=== PATIENT | female | born 1925 | race Caucasian/White ===

== ENCOUNTER 2017-03-12 10:47 | Inpatient (IN) | payer MEDICARE, OTHER ==
[2017-03-12] MEDS ORDERED: Furosemide IV* 10 MG/ML 2 ML VIAL (20 MG) IV SLOW PU ONE (13:22)
[2017-03-12 13:57] LABS: Hematocrit 41 % (35-47); Hemoglobin 13.3 g/dl (12.0-16.0); Mean Corpuscular HGB Conc 33 g/dl (31-36); Mean Corpuscular Hemoglobin 29 pg (27-31); Mean Corpuscular Volume 90 fL (80-97); Mean Platelet Volume 9 um3 (7.4-10.4); Red Blood Count 4.54 10^6/ul (4.0-5.4); Red Cell Distribution Width 14 % (10.5-15); White Blood Count 6.6 10^3/ul (3.5-10.8)
--- NOTE | 2017-03-12 14:12 | RAD ---
Indication: Shortness of breath. Single frontal view of the chest performed at 1358 hours was reviewed. Comparison is made with previous exam dated August 19, 2015. Cardiomegaly is noted. Patient is status post tracer thoracotomy. Bilateral pleural effusions are noted with increasing left pleural effusion. Interstitial edema is noted. IMPRESSION: CARDIOMEGALY WITH INCREASED INTERSTITIAL EDEMA AND LEFT PLEURAL EFFUSION.
[2017-03-12 14:20] LABS: Albumin 3.4 g/dL (3.2-5.2); BUN/Creatinine Ratio 25.8 (8-20); C Reactive Protein 50.81 mg/L (< 5.00); Calcium 9.3 mg/dL (8.6-10.3); EGFR African American 69.5 (>60); EGFR Non-African American 54.1 (>60); Globulin 2.9 g/dL (2-4); Magnesium 2.2 mg/dL (1.9-2.7); Potassium 4.8 mmol/L (3.5-5.0); Total Bilirubin 1.8 mg/dL (0.2-1.0); Total Protein 6.3 g/dL (6.4-8.9)
[2017-03-12 14:21] LABS: Urine Bacteria Absent (Absent); Urine Bilirubin Negative (Negative); Urine Glucose Negative (Negative); Urine Nitrite Negative (Negative)
[2017-03-12 14:26] LABS: Troponin I 7.29 ng/mL (<0.04)
[2017-03-12 14:53] LABS: TSH (Thyroid Stimulating Horm) 3.03 mcIU/mL (0.34-5.60)
--- NOTE | 2017-03-12 15:32 | ED ---
Anu Chavez Alfonso, scribed for Chevy Horne MD on 03/12/17 at 1301 . HPI Chest Pain - HPI Summary HPI Summary: This patient is a 89 year old female presenting to [facility] c/o diffuse pressured chest pain for 2 days. The CP is intermittent and her last episode of CP was an hour ago. Symptoms aggravated by nothing and alleviated by spontaneous resolution. Patient reports gaining weight while on diuretic medication, bilateral pedal edema worse from baseline, and dyspnea on exertion. Patient denies dyspnea at rest, coughing, fever, and chills. She also denies abdominal pain, nausea, diarrhea, and melena. PMHx of CHF and A-Fib. - History of Current Complaint Chief Complaint: EDChestPainROMI Time Seen by Provider: 03/12/17 13:00 Hx Obtained From: Patient Onset/Duration: Started Days Ago - Two days, Resolved - An hour ago Timing: Intermittent Initial Severity: Mild Current Severity: Mild Pain Intensity: 0 Pain Scale Used: 0-10 Numeric Chest Pain Location: Diffuse Character: Dyspnea at Exertion, Pressure/Squeezing Aggravating Factor(s): Nothing Alleviating Factor(s): Spontaneous Resolution Associated Signs and Symptoms: Positive: Chest Pain - Diffuse pressure, Shortness of Breath - Positive on exertion; negative at rest., Calf Pain/ Swelling - Bilateral pedal edema, Other: - Positive gaining weight while on a diuretic; negative diarrhea and melena. Negative: Fever, Chills, Nausea, Cough , Abdominal Pain - Allergy/Home Medications Allergies/Adverse Reactions: Allergies Allergy/AdvReac Type Severity Reaction Status Date / Time Latex Allergy Severe SKIN Verified 07/04/16 11:12 REACTION, ITCHING YOMAIRA Inhibitors Allergy Unknown Unknown Verified 07/04/16 11:12 Reaction Details Erythromycin Allergy Unknown GI Upset Verified 07/04/16 11:12 Iodinated Contrast Media Allergy Unknown Rash Verified 07/04/16 11:12 [CONTRAST DYE] PMH/Surg Hx/FS Hx/Imm Hx Cardiovascular History: Reports: Hx Angina, Hx Congestive Heart Failure - Was given this in report but there is no current H & P, Hx Hypertension, Other Cardiovascular Problems/Disorders - LEAKING VALVE,nonischemic cardiomyopathy, mitral valve disorder Respiratory History: Reports: Other Respiratory Problems/Disorders - emphasema Denies: Hx Asthma GI History: Reports: Hx Gastroesophageal Reflux Disease Sensory History: Reports: Hx Contacts or Glasses, Hx Hearing Aid Opthamlomology History: Reports: Hx Contacts or Glasses Neurological History: Reports: Hx Transient Ischemic Attacks (TIA) - Cancer History Cancer Type, Location and Year: Breast CA - Surgical History Surgery Procedure, Year, and Place: Left and right Ear surgery , cyst removed from left breast, colon resection for diverticulitis, VALVE REPLACEMENT , SMOKER AT 20 YEARS OLD FOR SHORT PERIOD Hx Anesthesia Reactions: No Infectious Disease History: Denies: Traveled Outside the [place] in Last 30 Days - Family History Known Family History: Positive: Other - Cancer Negative: Diabetes - Social History Alcohol Use: None Substance Use Type: Reports: None Smoking Status (MU): Former Smoker Review of Systems Positive: Other - Gaining weight while on diuretic medication. Negative: Fever , Chills Positive: Chest Pain - Diffuse pressured Positive: Shortness Of Breath - Positive on exertion; negative at rest.. Negative: Cough Positive: Other - Negative melena. Negative: Abdominal Pain, Diarrhea, Nausea Positive: Edema - bilateral pedal edema worse from baseline All Other Systems Reviewed And Are Negative: Yes Physical Exam - Summary Physical Exam Summary: Gen: well-appearing, no pain distress, no acute distress Skin: warm, color, dry, bilateral pedal edema Head: normal Eyes: EOMI, KASSI ENT: normal Neck: supple, nontender Resp: Crackles at the bases of the lungs Cardio: RRR Abd: soft, nontender Bowel: present Musc: normal, strength/ROM intact Neuro: normal, sensory/motor intact, A&O x3 Psych: affect/mood appropriate Triage Information Reviewed: Yes Vital Signs On Initial Exam: Initial Vitals Temp Pulse Resp BP Pulse Ox 97.7 F 55 22 92/72 100 03/12/17 10:48 03/12/17 10:48 03/12/17 10:48 03/12/17 10:48 03/12/17 10:48 Vital Signs Reviewed: Yes Diagnostics - Vital Signs Vital Signs Temp Pulse Resp BP Pulse Ox 03/12/17 10:48 97.7 F 55 22 92/72 100 - Laboratory Lab Results: Lab Results 03/12/17 03/12/17 03/12/17 Range/Units 13:50 13:50 13:50 WBC 6.6 (3.5-10.8) 10^3/ul RBC 4.54 (4.0-5.4) 10^6/ul Hgb 13.3 (12.0-16.0) g/dl Hct 41 (35-47) % MCV 90 (80-97) fL MCH 29 (27-31) pg MCHC 33 (31-36) g/dl RDW 14 (10.5-15) % Plt Count 142 L (150-450) 10^3/ul MPV 9 (7.4-10.4) um3 Neut % (Auto) 62.8 (38-83) % Lymph % (Auto) 25.4 (25-47) % [place] % (Auto) 10.5 H (1-9) % Eos % (Auto) 0.4 (0-6) % Baso % (Auto) 0.9 (0-2) % Absolute Neuts (auto) 4.1 (1.5-7.7) 10^3/ul Absolute Lymphs (auto) 1.7 (1.0-4.8) 10^3/ul Absolute Monos (auto) 0.7 (0-0.8) 10^3/ul Absolute Eos (auto) 0 (0-0.6) 10^3/ul Absolute Basos (auto) 0.1 (0-0.2) 10^3/ul Absolute Nucleated RBC 0 10^3/ul Nucleated RBC % 0 INR (Anticoag Therapy) 2.49 H (0.89-1.11) APTT 43.6 H (26.0-36.3) seconds Sodium (133-145) mmol/L Potassium (3.5-5.0) mmol/L Chloride (101-111) mmol/L Carbon Dioxide (22-32) mmol/L Anion Gap (2-11) mmol/L BUN (6-24) mg/dL Creatinine (0.51-0.95) mg/dL Est GFR ( Amer) (>60) Est GFR (Non-Af Amer) (>60) BUN/Creatinine Ratio (8-20) Glucose (70-100) mg/dL Lactic Acid (0.5-2.0) mmol/L Calcium (8.6-10.3) mg/dL Magnesium (1.9-2.7) mg/dL Total Bilirubin (0.2-1.0) mg/dL AST (13-39) U/L ALT (7-52) U/L Alkaline Phosphatase (34-104) U/L Total Creatine Kinase (10-223) U/L CK-MB (CK-2) (0.6-6.3) ng/mL Troponin I (<0.04) ng/mL C-Reactive Protein (< 5.00) mg/L B-Natriuretic Peptide ( - 100) pg/mL Total Protein (6.4-8.9) g/dL Albumin (3.2-5.2) g/dL Globulin (2-4) g/dL Albumin/Globulin Ratio (1-3) Lipase (11.0-82.0) U/L TSH (0.34-5.60) mcIU/mL Urine Color Yellow Urine Appearance Clear Urine pH 5.0 (5-9) Ur Specific [place] 1.011 (1.010-1.030) Urine Protein Negative (Negative) Urine Ketones Negative (Negative) Urine Blood Negative (Negative) Urine Nitrate Negative (Negative) Urine Bilirubin Negative (Negative) Urine Urobilinogen Negative (Negative) Ur Leukocyte Esterase 1+ H (Negative) Urine WBC (Auto) 2+(11-20/hpf) H (Absent) Urine RBC (Auto) Trace(0-2/hpf) (Absent) Ur Squamous Epith Cells Present H (Absent) Urine Bacteria Absent (Absent) Hyaline Casts Present H (Absent) Urine Glucose Negative (Negative) Urine Ascorbic Acid * H (Negative) 03/12/17 03/12/17 03/12/17 Range/Units 13:50 13:50 13:50 WBC (3.5-10.8) 10^3/ul RBC (4.0-5.4) 10^6/ul Hgb (12.0-16.0) g/dl Hct (35-47) % MCV (80-97) fL MCH (27-31) pg MCHC (31-36) g/dl RDW (10.5-15) % Plt Count (150-450) 10^3/ul MPV (7.4-10.4) um3 Neut % (Auto) (38-83) % Lymph % (Auto) (25-47) % [place] % (Auto) (1-9) % Eos % (Auto) (0-6) % Baso % (Auto) (0-2) % Absolute Neuts (auto) (1.5-7.7) 10^3/ul Absolute Lymphs (auto) (1.0-4.8) 10^3/ul Absolute Monos (auto) (0-0.8) 10^3/ul Absolute Eos (auto) (0-0.6) 10^3/ul Absolute Basos (auto) (0-0.2) 10^3/ul Absolute Nucleated RBC 10^3/ul Nucleated RBC % INR (Anticoag Therapy) (0.89-1.11) APTT (26.0-36.3) seconds Sodium 130 L (133-145) mmol/L Potassium 4.8 (3.5-5.0) mmol/L Chloride 91 L (101-111) mmol/L Carbon Dioxide 33 H (22-32) mmol/L Anion Gap 6 (2-11) mmol/L BUN 25 H (6-24) mg/dL Creatinine 0.97 H (0.51-0.95) mg/dL Est GFR ( Amer) 69.5 (>60) Est GFR (Non-Af Amer) 54.1 (>60) BUN/Creatinine Ratio 25.8 H (8-20) Glucose 101 H (70-100) mg/dL Lactic Acid 1.6 (0.5-2.0) mmol/L Calcium 9.3 (8.6-10.3) mg/dL Magnesium 2.2 (1.9-2.7) mg/dL Total Bilirubin 1.80 H (0.2-1.0) mg/dL AST 50 H (13-39) U/L ALT 34 (7-52) U/L Alkaline Phosphatase 118 H (34-104) U/L Total Creatine Kinase 70 (10-223) U/L CK-MB (CK-2) 3.6 (0.6-6.3) ng/mL Troponin I 7.29 H* (<0.04) ng/mL C-Reactive Protein 50.81 H (< 5.00) mg/L B-Natriuretic Peptide 4161 H ( - 100) pg/mL Total Protein 6.3 L (6.4-8.9) g/dL Albumin 3.4 (3.2-5.2) g/dL Globulin 2.9 (2-4) g/dL Albumin/Globulin Ratio 1.2 (1-3) Lipase 22 (11.0-82.0) U/L TSH 3.03 (0.34-5.60) mcIU/mL Urine Color Urine Appearance Urine pH (5-9) Ur Specific [place] (1.010-1.030) Urine Protein (Negative) Urine Ketones (Negative) Urine Blood (Negative) Urine Nitrate (Negative) Urine Bilirubin (Negative) Urine Urobilinogen (Negative) Ur Leukocyte Esterase (Negative) Urine WBC (Auto) (Absent) Urine RBC (Auto) (Absent) Ur Squamous Epith Cells (Absent) Urine Bacteria (Absent) Hyaline Casts (Absent) Urine Glucose (Negative) Urine Ascorbic Acid (Negative) Result Diagrams: 03/12/17 13:50 03/12/17 13:50 Lab Statement: Any lab studies that have been ordered have been reviewed, and results considered in the medical decision making process. - Radiology CXR Xray Interpretation: Positive (See Comments) - CARDIOMEGALY WITH INCREASED INTERSTITIAL EDEMA AND LEFT PLEURAL EFFUSION. Radiology Interpretation Completed By: Radiologist - EKG 1057 EKG Rhythm: Atrial Fibrillation - BPM 87 EKG Interpretation: LBBB and PVC Re-Evaluation - Re-Evaluation 1325 Re-Evaluation Time: 13:25 Comment: Discussed plan to administer Lasix with patient and daughter. They were agreeable to this plan. Second Eval Re-Evaluation Time: 14:41 - Discussed plan with patient and daughter. They were agreeable to this plan. Chest Pain Course/Dx - Course Course Of Treatment: CRITICAL CARE TIME LESS THAN [address] POWELL SAW PATIENT IN ED. RECOMMENDED NO ASA AT THIS TIME. PATIENT ADMIT TO HOSPITALIST STABLE. - Diagnoses Provider Diagnoses: CHF (congestive heart failure), Myocardial infarction - Provider Notifications Discussed Care Of Patient With: Malia Powell Time Discussed With Above Provider: 13:20 Instructed by Provider To: MD Will See In ED - Consulted with Malia Powell ( manufacturing machine operator) who recommends 20-40mg of IV Lasix. She will see the patient in the ED. After evaluating patient in the ED, Dr. Powell states patient is agreeable with admission. Dr. Silva (hospitalist) consulted at 1456 and he accepts patient for admission. Discharge - Discharge Plan Condition: Stable Disposition: ADMITTED TO [facility] Referrals: Bonifacio Castañeda MD [Primary Care Provider] - The documentation as recorded by the Anu mackay Alfonso accurately reflects the service I personally performed and the decisions made by me, Chevy Horne MD.
[2017-03-12] MEDS ORDERED: Ondansetron INJ* 2 MG/ML VIAL IV PRN (15:59)
[2017-03-12] MEDS ORDERED: Acetaminophen TAB* 325 MG PO PRN (15:59)
[2017-03-12] MEDS ORDERED: Warfarin TAB(*) 2 MG PO ONE (17:00)
--- NOTE | 2017-03-12 18:29 | HP ---
CC: Bonifacio Castañeda MD; Malia Rick MD * ADMISSION HISTORY AND PHYSICAL: DATE OF ADMISSION: 03/12/17 PRIMARY CARE PROVIDER: Bonifacio Castañeda MD. PRIMARY BLASTING ENTRY SPECIALIST: Malia Rick MD. ADMITTING PROVIDER: LILIAN Clay. SUPERVISING PHYSICIAN: Librado Silva MD.* (DICTATED BY LILIAN CLAY) CHIEF COMPLAINT: Shortness of breath. HISTORY OF PRESENT ILLNESS: This is an 89-year-old female with a history of severe cardiomyopathy who presented to the emergency department with complaints of increased dyspnea on exertion. The patient lives with her daughter who is diligent at checking daily weights and noted about a 3-pound increase over the last several days. It was not improving with additional diuretics at home. She typically takes 30 mg of torsemide daily with 40 mg dose given 3 times weekly along with spironolactone. She has taken the 40 mg dose for 2 days in a row and did not notice a significant change in weight; if anything, it increased by another half a pound or so. She became more acutely dyspneic last night, but did not want to proceed to the emergency department at that time. She generally climbs a circular staircase to get up to her bedroom, but has not done so in the last week or so. In addition to the weight gain and dyspnea, she has also noted some increased lower extremities edema and abdominal bloating. Also new in the last few days is she has been experiencing some chest pain and pressure with exertion as limited as just getting to the bathroom and back. Her urine output has also been less recently. She denies any other urinary complaints including abdominal pain, nausea, vomiting, dysuria , hematuria or frequency. The patient's daughter called Dr. Rick's office for advice regarding her weight gain not responding to her home diuretics and advice was given to seek care in the emergency department. The patient denies any other acute recent illness including a cough or fevers. No GI complaints as listed above and again no urinary complaints. She does state that she has had some recent allergies which is typical for her this time of the year, but again, nothing out of the ordinary. PAST MEDICAL HISTORY: 1. Paroxysmal atrial fibrillation. 2. Systolic and diastolic heart failure - severe with last echo showing an EF of less than 20% and grade 3 diastolic dysfunction. 3. Severe mitral regurgitation, status post mitral valve replacement with bioprosthetic valve in place. PAST SURGICAL HISTORY: Mitral valve replacement. HOME MEDICATIONS: 1. Vitamin C 1000 mg p.o. daily. 2. Vitamin D 2000 units p.o. daily. 3. Magnesium oxide 400 mg p.o. twice daily. 4. Metoprolol succinate 25 mg p.o. daily. 5. Multivitamin 1 capsule p.o. daily. 6. Zantac 150 mg p.o. twice daily. 7. Spironolactone 12.5 mg on Friday, , Friday, Friday. 8. She takes torsemide 30 mg on Friday, Friday, Friday, Friday and 40 mg on Friday, , Friday. 9. Coumadin 2 mg p.o. daily. SOCIAL HISTORY: The patient lives at home with her daughter. She is a retired [employer] professor. No significant smoking history and rare alcohol consumption. REVIEW OF SYSTEMS: As listed above in HPI. All other systems have been reviewed and otherwise negative. PHYSICAL EXAMINATION GENERAL: This is a pleasant elderly female who is accompanied by her daughter and does not appear to be in any acute distress, lying comfortably in a hospital stretcher. INITIAL VITAL SIGNS: Temperature 97.7 degrees Fahrenheit, pulse 55 beats per minute, respiratory rate 22, oxygen saturation 100% on 8 L via nasal cannula and a blood pressure of 92/72 mmHg. HEENT: Head is normocephalic, atraumatic. Mucous membranes are pink and moist. RESPIRATORY: There are a few crackles appreciated at lung bases and some diminished breath sounds in the left lung base. CARDIOVASCULAR: She has a slightly irregular rhythm. No significant murmur appreciated. ABDOMEN: Abdomen is slightly distended but soft and nontender to palpation. EXTREMITIES: The patient has trace to 1+ left lower extremity edema and 1 to 2 + right lower extremity edema. SKIN: Limited exam shows no concerning rashes or lesions. PSYCH: The patient is alert and appropriately oriented. Some mild confusion with details of her history, but is otherwise a quite appropriate historian. LABORATORY EVALUATION: CBC is unremarkable with a white blood cell count of 6600, hemoglobin of 13.3 g/dL and platelet count of 142,000. INR of 2.5. Comprehensive metabolic panel shows sodium of 130, serum bicarb of 33, BUN 25, creatinine 0.97. Magnesium normal at 2.2. Total bili mildly elevated at 1.8 with AST mildly elevated at 50. Normal ALT 34. Alk phos mildly elevated at 118. Troponin significantly elevated at 7.29. CRP moderately elevated at 50. BNP significantly elevated at 4161. TSH normal at 3.03. Urinalysis shows 1+ leuk esterase and 2+ white blood cells. Otherwise, unremarkable. IMAGING: Chest x-ray shows interstitial edema with bilateral pleural effusions , left is moderate in size and right is small. EKG shows atrial fibrillation with a left bundle branch block which is unchanged from prior. Review of echocardiogram from April 2016 shows an ejection fraction of less than 20% with grade 3 diastolic dysfunction and a functional bioprosthetic mitral valve in place with mild regurg. ASSESSMENT AND PLAN: This is a very pleasant 89-year-old female with severe cardiomyopathy who presented to the emergency department with complaints of dyspnea with noted exacerbation of her congestive heart failure and significantly elevated troponin. 1. Congestive heart failure exacerbation - the patient has a moderately sized left pleural effusion with lower extremities edema and what likely is abdominal ascites. She is up at least 3 pounds from her dry weight which may or may not be a euvolemic state. In terms of intervention, the patient requests very little intervention. She is not interested in really anything beyond diuresis. She is agreeable to [place] catheter and IV Lasix and an abbreviated hospital stay but otherwise is not agreeable to considering BiPAP or ionotropic agents and certainly wishes to be DNR and DNI status. These plans were discussed with her daughter as well as Dr. Rick, all of which are in agreement. The patient has had severe cardiomyopathy for nearly a decade now and has been appropriately managed as an outpatient, but certainly her disease is progressing along with her age. I discussed palliative care consultation and home hospice which the patient and her daughter are in agreement and learning more about, but she is somewhat weary to consider nurses coming to visit in the home. 2. Elevated troponin - patient is certainly not acutely symptomatic for this to represent acute coronary syndrome and new ischemia is difficult to interpret with a chronic left bundle branch block. A troponin of 7 is quite high to blame this all on demand ischemia. Regardless of etiology, the patient does not desire dramatic intervention including cardiac catheterization. We will plan to trend her troponin at this time and continue her Coumadin. Heparin drip is not indicated as she is already therapeutic on Coumadin. This was discussed with Dr. Rick who agrees that no further intervention will be pursued at this time. 3. Atrial fibrillation - as previously listed paroxysmal, but may be chronic for her. She is appropriately rate controlled and anticoagulated with Coumadin. Both her metoprolol and Coumadin will be continued at this time. 4. Hyponatremia - this is likely related to her hypervolemic state and anticipate some improvement with diuresis. 5. Elevated CRP - this is moderately elevated. The patient is asymptomatic at this time. There is positive leuk esterase and white blood cells in her urine and culture pending. We will wait for at least preliminary culture results before starting empiric antibiotic therapy. The patient and her daughter are agreeable to antibiotics if seemingly necessary. 6. Code status. The patient is DNR/DNI and MOLST form was signed in the emergency department. 7. Healthcare proxy is her daughter. 8. DVT prophylaxis. The patient is therapeutic on Coumadin. 9. Disposition. The patient is being admitted under inpatient status for congestive heart failure exacerbation with anticipated length of stay to be greater than 2 midnights. LILIAN CLAY [id number]/[facility] #: [id number] STEPHANIE
[2017-03-12] MEDS ORDERED: Furosemide IV* 10 MG/ML 2 ML VIAL (20 MG) IV ONE (19:00)
[2017-03-12] MEDS: Famotidine TAB* 20 MG PO SCH (21:08)
[2017-03-12] MEDS: Magnesium Oxide TAB* 400 MG PO SCH (21:08)
[2017-03-12] MEDS: Morphine INJ* 2 MG/ML 1 ML SYRINGE IV PRN (21:44)
[2017-03-13 05:11] LABS: Hematocrit 38 % (35-47); Hemoglobin 12.3 g/dl (12.0-16.0); Mean Corpuscular HGB Conc 33 g/dl (31-36); Mean Corpuscular Hemoglobin 29 pg (27-31); Mean Corpuscular Volume 90 fL (80-97); Mean Platelet Volume 9 um3 (7.4-10.4); Red Blood Count 4.22 10^6/ul (4.0-5.4); Red Cell Distribution Width 14 % (10.5-15); White Blood Count 5.9 10^3/ul (3.5-10.8)
[2017-03-13 05:24] LABS: BUN/Creatinine Ratio 29.3 (8-20); EGFR African American 67.9 (>60); EGFR Non-African American 52.8 (>60); Potassium 4.4 mmol/L (3.5-5.0)
[2017-03-13 08:01] LABS: Albumin 3.1 g/dL (3.2-5.2); Direct Bilirubin 0.3 mg/dL (0.03-0.18); Globulin 2.6 g/dL (2-4); Indirect Bilirubin 1.1 mg/dL (0.3-1.0); Total Bilirubin 1.4 mg/dL (0.2-1.0); Total Protein 5.7 g/dL (6.4-8.9)
[2017-03-13] MEDS ORDERED: Furosemide IV* 10 MG/ML VIAL (40 MG) IV SCH (09:00)
[2017-03-13] MEDS: Metoprolol Succinate XL TAB* 25 MG PO SCH (09:06)
[2017-03-13] MEDS: MULTIVITAMIN PO SCH (09:06)
[2017-03-13] MEDS: ASCORBIC ACID 1000 MG PO SCH (09:06)
[2017-03-13] MEDS: [UNRECOGNIZED DRUG - OTHER] PO SCH (09:06)
[2017-03-13] MEDS: Magnesium Oxide TAB* 400 MG PO SCH ×2 (09:06→20:31)
[2017-03-13] MEDS: Famotidine TAB* 20 MG PO SCH ×2 (09:06→20:31)
[2017-03-13] MEDS: Spironolactone TAB* 25 MG PO SCH (09:06)
[2017-03-13] MEDS: IRON PO SCH (09:06)
[2017-03-13 09:21] LABS: Troponin I 4.82 ng/mL (<0.04)
--- NOTE | 2017-03-13 09:38 | PN ---
Subjective Date of Service: 03/13/17 Interval History: Pt feels much better and wants to go home. Down to 3 L on 02(used to be on 6-8 L till yesterday) Today seen with her daughter Objective Active Medications: Acetaminophen (Tylenol Tab*) 650 mg PO Q4H PRN PRN Reason: FEVER/PAIN Last Admin: 03/12/17 20:12 Dose: 650 mg Famotidine (Pepcid Tab*) 20 mg PO BID [facility] PRN Reason: Protocol Last Admin: 03/13/17 09:06 Dose: 20 mg Magnesium Oxide (Magox 400 Tab*) 400 mg PO BID [facility] Last Admin: 03/13/17 09:06 Dose: 400 mg Metoprolol Succinate (Toprol Xl Tab*) 25 mg PO DAILY [facility] Last Admin: 03/13/17 09:06 Dose: 25 mg Morphine Sulfate (Morphine Inj (Syringe)*) 2 mg IV Q4H PRN PRN Reason: PAIN - MILD Last Admin: 03/12/17 21:44 Dose: 2 mg Pto Nf Med* Ascorbic (Acid 1000 Mg Cap) 1 admin PO DAILY [facility] Last Admin: 03/13/17 09:06 Dose: 1 admin Pto Nf Med* Multivitamin With Mineral And Iron Cap 1 admin PO DAILY [facility] Last Admin: 03/13/17 09:06 Dose: 1 admin Ondansetron HCl (Zofran Inj*) 4 mg IV Q4H PRN PRN Reason: NAUSEA/VOMITING Pharmacy Profile Note (Coumadin Per Pharmacy*) 1 note FOLLOW UP .PER PHARMACY PROTOC [facility] PRN Reason: Protocol Pharmacy Profile Note (Coumadin Daily Reminder*) 1 note FOLLOW UP 1700 [facility] Spironolactone (Aldactone Tab*) 12.5 mg PO DAILY [facility] Last Admin: 03/13/17 09:06 Dose: 12.5 mg Vital Signs 03/12/17 03/12/17 03/12/17 15:30 15:39 15:49 Temperature 97.8 F Pulse Rate 88 75 101 Respiratory 18 15 18 Rate Blood Pressure 87/52 85/31 (mmHg) O2 Sat by Pulse 98 98 89 Oximetry 03/12/17 03/12/17 03/12/17 16:00 18:08 20:00 Temperature Pulse Rate 98 Respiratory 22 20 Rate Blood Pressure 88/62 (mmHg) O2 Sat by Pulse 96 Oximetry 03/12/17 03/12/17 03/13/17 21:44 22:44 00:10 Temperature 98.3 F Pulse Rate 48 Respiratory 20 16 16 Rate Blood Pressure 89/56 (mmHg) O2 Sat by Pulse 100 Oximetry 03/13/17 03/13/17 03/13/17 03:49 03:54 07:36 Temperature 97.8 F 97.3 F Pulse Rate 84 80 83 Respiratory 18 18 Rate Blood Pressure 82/50 89/47 81/48 (mmHg) O2 Sat by Pulse 100 100 Oximetry 03/13/17 03/13/17 08:00 08:17 Temperature Pulse Rate Respiratory 16 Rate Blood Pressure 84/48 (mmHg) O2 Sat by Pulse Oximetry Oxygen Devices in Use Now: Nasal Cannula - at 3 L, 02 sat at 96% Appearance: 89 yo F in nAd, aAOx3 Eyes: No Scleral Icterus, PERRLA Ears/Nose/Mouth/Throat: NL Teeth, Lips, Gums, Mucous Membranes Moist Neck: NL Appearance and Movements; NL JVP, Trachea Midline Respiratory: Symmetrical Chest Expansion and Respiratory Effort, - - crackles at b/l bases Cardiovascular: NL Sounds; No Murmurs; No JVD, - - irregular Abdominal: NL Sounds; No Tenderness; No Distention, No Hepatosplenomegaly Lymphatic: No Cervical Adenopathy Extremities: No Clubbing, Cyanosis, - - trace pedal edema b/l Skin: No Rash or Ulcers, No Nodules or Sclerosis Neurological: Alert and Oriented x 3, NL Muscle Strength and Tone Result Diagrams: 03/13/17 04:50 03/13/17 04:50 Additional Lab and Data: Lab Results 03/12/17 03/12/17 03/12/17 Range/Units 13:50 13:50 13:50 WBC 6.6 (3.5-10.8) 10^3/ul RBC 4.54 (4.0-5.4) 10^6/ul Hgb 13.3 (12.0-16.0) g/dl Hct 41 (35-47) % MCV 90 (80-97) fL MCH 29 (27-31) pg MCHC 33 (31-36) g/dl RDW 14 (10.5-15) % Plt Count 142 L (150-450) 10^3/ul MPV 9 (7.4-10.4) um3 Neut % (Auto) 62.8 (38-83) % Lymph % (Auto) 25.4 (25-47) % [place] % (Auto) 10.5 H (1-9) % Eos % (Auto) 0.4 (0-6) % Baso % (Auto) 0.9 (0-2) % Absolute Neuts (auto) 4.1 (1.5-7.7) 10^3/ul Absolute Lymphs (auto) 1.7 (1.0-4.8) 10^3/ul Absolute Monos (auto) 0.7 (0-0.8) 10^3/ul Absolute Eos (auto) 0 (0-0.6) 10^3/ul Absolute Basos (auto) 0.1 (0-0.2) 10^3/ul Absolute Nucleated RBC 0 10^3/ul Nucleated RBC % 0 INR (Anticoag Therapy) 2.49 H (0.89-1.11) APTT 43.6 H (26.0-36.3) seconds Sodium (133-145) mmol/L Potassium (3.5-5.0) mmol/L Chloride (101-111) mmol/L Carbon Dioxide (22-32) mmol/L Anion Gap (2-11) mmol/L BUN (6-24) mg/dL Creatinine (0.51-0.95) mg/dL Est GFR ( Amer) (>60) Est GFR (Non-Af Amer) (>60) BUN/Creatinine Ratio (8-20) Glucose (70-100) mg/dL Lactic Acid (0.5-2.0) mmol/L Calcium (8.6-10.3) mg/dL Magnesium (1.9-2.7) mg/dL Total Bilirubin (0.2-1.0) mg/dL AST (13-39) U/L ALT (7-52) U/L Alkaline Phosphatase (34-104) U/L Total Creatine Kinase (10-223) U/L CK-MB (CK-2) (0.6-6.3) ng/mL Troponin I (<0.04) ng/mL C-Reactive Protein (< 5.00) mg/L B-Natriuretic Peptide ( - 100) pg/mL Total Protein (6.4-8.9) g/dL Albumin (3.2-5.2) g/dL Globulin (2-4) g/dL Albumin/Globulin Ratio (1-3) Lipase (11.0-82.0) U/L TSH (0.34-5.60) mcIU/mL Urine Color Yellow Urine Appearance Clear Urine pH 5.0 (5-9) Ur Specific [place] 1.011 (1.010-1.030) Urine Protein Negative (Negative) Urine Ketones Negative (Negative) Urine Blood Negative (Negative) Urine Nitrate Negative (Negative) Urine Bilirubin Negative (Negative) Urine Urobilinogen Negative (Negative) Ur Leukocyte Esterase 1+ H (Negative) Urine WBC (Auto) 2+(11-20/hpf) H (Absent) Urine RBC (Auto) Trace(0-2/hpf) (Absent) Ur Squamous Epith Cells Present H (Absent) Urine Bacteria Absent (Absent) Hyaline Casts Present H (Absent) Urine Glucose Negative (Negative) Urine Ascorbic Acid * H (Negative) 03/12/17 03/12/17 03/12/17 Range/Units 13:50 13:50 13:50 WBC (3.5-10.8) 10^3/ul RBC (4.0-5.4) 10^6/ul Hgb (12.0-16.0) g/dl Hct (35-47) % MCV (80-97) fL MCH (27-31) pg MCHC (31-36) g/dl RDW (10.5-15) % Plt Count (150-450) 10^3/ul MPV (7.4-10.4) um3 Neut % (Auto) (38-83) % Lymph % (Auto) (25-47) % [place] % (Auto) (1-9) % Eos % (Auto) (0-6) % Baso % (Auto) (0-2) % Absolute Neuts (auto) (1.5-7.7) 10^3/ul Absolute Lymphs (auto) (1.0-4.8) 10^3/ul Absolute Monos (auto) (0-0.8) 10^3/ul Absolute Eos (auto) (0-0.6) 10^3/ul Absolute Basos (auto) (0-0.2) 10^3/ul Absolute Nucleated RBC 10^3/ul Nucleated RBC % INR (Anticoag Therapy) (0.89-1.11) APTT (26.0-36.3) seconds Sodium 130 L (133-145) mmol/L Potassium 4.8 (3.5-5.0) mmol/L Chloride 91 L (101-111) mmol/L Carbon Dioxide 33 H (22-32) mmol/L Anion Gap 6 (2-11) mmol/L BUN 25 H (6-24) mg/dL Creatinine 0.97 H (0.51-0.95) mg/dL Est GFR ( Amer) 69.5 (>60) Est GFR (Non-Af Amer) 54.1 (>60) BUN/Creatinine Ratio 25.8 H (8-20) Glucose 101 H (70-100) mg/dL Lactic Acid 1.6 (0.5-2.0) mmol/L Calcium 9.3 (8.6-10.3) mg/dL Magnesium 2.2 (1.9-2.7) mg/dL Total Bilirubin 1.80 H (0.2-1.0) mg/dL AST 50 H (13-39) U/L ALT 34 (7-52) U/L Alkaline Phosphatase 118 H (34-104) U/L Total Creatine Kinase 70 (10-223) U/L CK-MB (CK-2) 3.6 (0.6-6.3) ng/mL Troponin I 7.29 H* (<0.04) ng/mL C-Reactive Protein 50.81 H (< 5.00) mg/L B-Natriuretic Peptide 4161 H ( - 100) pg/mL Total Protein 6.3 L (6.4-8.9) g/dL Albumin 3.4 (3.2-5.2) g/dL Globulin 2.9 (2-4) g/dL Albumin/Globulin Ratio 1.2 (1-3) Lipase 22 (11.0-82.0) U/L TSH 3.03 (0.34-5.60) mcIU/mL Urine Color Urine Appearance Urine pH (5-9) Ur Specific [place] (1.010-1.030) Urine Protein (Negative) Urine Ketones (Negative) Urine Blood (Negative) Urine Nitrate (Negative) Urine Bilirubin (Negative) Urine Urobilinogen (Negative) Ur Leukocyte Esterase (Negative) Urine WBC (Auto) (Absent) Urine RBC (Auto) (Absent) Ur Squamous Epith Cells (Absent) Urine Bacteria (Absent) Hyaline Casts (Absent) Urine Glucose (Negative) Urine Ascorbic Acid (Negative) Assess/Plan/Problems-Billing Assessment: 89 yo F with h/o cardiomyopathy (EF 20%), mitral valve replacement, chronic systolic CHF, VT presents with CHF exacerbation - Patient Problems (1) Acute systolic CHF (congestive heart failure) Comment: diuresed 600 ml after a total of 40 mg IV Lasix yesterday Pt has , what appears to be, chronic left sided pleural effusion on CXR Daughter very particular about pt's care, requests Dr. 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 D/w Dr. Rick, will cont diuresis with IV Lasix (2) Atrial fibrillation Comment: rate controlled, cont lopressor (3) Elevated C-reactive protein (CRP) Comment: At 50, urine cx positive for approx 25 000 colonies E. coli d/w Dr. Rick. In light of elevated CRP will tx with 5 days of Bactrim (4) NSTEMI (non-ST elevated myocardial infarction) Comment: pt c/o chest pressure 4 days prior to admission trop peaked at 7, today down to 4. On coumadin, INR 2.8 Will d/w Dr. Rick re: ASA use. Daughter would like to defer all tx decisions to Dr. Rick (5) DVT prophylaxis Comment: Coumadin Status and Disposition: Will cont diuresis with IV Lasix today Inpatient
[2017-03-13] MEDS ORDERED: Furosemide IV* 10 MG/ML 2 ML VIAL (20 MG) IV ONE ×2 (10:21→17:00)
--- NOTE | 2017-03-13 15:06 | CONS ---
CC: Dr. Bonifacio Castañeda in the hospitalist service CARDIOLOGY CONSULTATION: DATE OF CONSULT: 03/13/17 REASON FOR CONSULTATION: Congestive heart failure. HISTORY OF PRESENT ILLNESS: Ms. Moody is an 89-year-old woman with a longstanding cardiomyopathy and significant mitral insufficiency. She went for many years with this without any intervention. In 2012, she went to [facility] for a MitraClip. One was successfully put in but she required two and the second one led to flail and urgent mitral valve replacement. The patient has been on medical management for her severe nonischemic cardiomyopathy and more recently she has been gaining weight and getting more short of breath and has stopped responding to outpatient adjustments in her diuretics. It was advised she present to the emergency room. Yesterday, in the emergency room, a chest x-ray revealed a moderate pericardial effusion in the left as well as congestive heart failure within the lung galloway and elevated inflammatory profile and her BNP was over 4000 and typically she will run around 1000. She was admitted for diuresis and evaluation for possible infection/inflammation. I did see her in the emergency department yesterday after the ED physician called and let me know she was there. Her breath sounds on the left had definitely progressed from when I had seen her in the office in January. The patient was seen yesterday and today with her daughter. Although there is often some dietary indiscretion, there is lately been no more so than usual. They have been increasing the oxygen levels at home on their own. The patient has become much more winded, can barely walk in the house without getting very short of breath. She has had some dry coughing and her daughter reported that one time they were out and her mother coughed so much she threw up. The sputum was clear. No history of purulent sputum. As an outpatient, she had torsemide 40 mg with spironolactone and the dose was increased to 40 mg with no change in urine output or weight. PAST MEDICAL HISTORY: Chronic atrial fibrillation; chronic endstage congestive heart failure; mitral valve replacement for severe mitral insufficiency ( bioprosthetic valve); cardiomyopathy, nonischemic, ejection fraction on echo April 2016 was less than 20%, at that time she was in sinus rhythm with grade- 3 diastolic dysfunction; mild aortic insufficiency, trace mitral and trace tricuspid insufficiency. She has history of PVCs and nonsustained ventricular tachycardia and has multiple times declined an ICD. MEDICATIONS: Current inpatient meds include: 1. Tylenol. 2. Pepcid. 3. IV Lasix 20 mg IV p.r.n.. She received 20 mg IV push x2 yesterday. 4. Magnesium oxide 400 mg a day. 5. Toprol-XL 25 mg a day. 6. Morphine p.r.n. 7. Ascorbic acid. 8. Multi-Shakeel. 9. Zofran p.r.n. 10. Coumadin. 11. Aldactone 12.5 mg a day. FAMILY HISTORY: Significant that her father had emphysema. Her mother with breast cancer. 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 One daughter (Tia) has been living with her since her illness and assisting. No history of smoking or alcohol intake. The patient is . REVIEW OF SYSTEMS: Significant in that she has had some sinus discharge, rhinorrhea that it is clear, not purulent. Orthopnea. No chest pain. No ear infections. No fevers, chills, sweats, hematuria or dysuria. No other infection sign could be appreciated. As above. All other review of systems unremarkable. PHYSICAL EXAM: The patient is 5 feet 5 inches, weighs 132 pounds with a BMI of 22. Vital Signs: On admission, blood pressure 92/72, pulse was documented at 55 to 95, respiratory rate 22, oxygen saturation on 8 L 100%, and she is afebrile. After 20 mg of Lasix in the ED yesterday, her blood pressures went down to systolic 81/67. Currently, the patient's pulse is 85, blood pressure 84/ 48. General Appearance: Somewhat elderly woman in no acute distress. Psychologically, pleasant and cooperative. Neurologically, hard of hearing but awake, alert, and oriented to person, place and time. Cranial nerves otherwise intact. She does ambulate independently and age appropriate gait and consistent with her illness. Skin: Warm and dry without appreciable cyanosis or rashes. HEENT: Pupils are equal and round. Mucous membranes are moderately moist. Neck with marked increased JVP and distention. Breath sounds heavy crackles in the left base about a third of the way up the lung galloway, Finer crackles in the right. Coronary: S1, S2. Irregularly regular. I did not appreciate a murmur today. Abdomen: Soft. No hepatomegaly. Lower extremities: Trace edema. DIAGNOSTIC STUDIES/LAB DATA: The patient's ECG on 03/12/17 confirms that she is in atrial fibrillation with a rate of 87 beats a minute and 2 PVCs in the 10- second strip. She has a left bundle-branch block. Chest x-ray showed a left pleural effusion that has progressed from old EKGs and increased interstitial edema. Labs today, white count 5.9, hemoglobin 12.3, platelets 130. INR 2.49 on admission, 2.82 today. Sodium is 130, potassium 4.4, chloride 92, bicarb 33, BUN 29, creatinine 0.99, glucose 94. Bilirubin 1.4 total. Direct bili 0.3. AST of 46, ALT of 33, alk phos 119. Troponin-I 4.82, troponin-II 7.84, troponin -III 7.48 and troponin-IV 7.29. BNP is 4161. TSH 3.03. A urinalysis with leukocyte esterase positive. White count 2+. Specific gravity 1.011 and cultures pending. IMPRESSION: In summary, Joy Moody is an 89-year-old woman with a longstanding severe nonischemic cardiomyopathy, four years status post mitral valve replacement, on medical management for chronic congestive heart failure has decompensated. Her low blood pressures make outpatient adjustments in medication difficult, as does her hyponatremia and has lack of response to adjustments in her oral meds. She is therefore now admitted. I would like to try to continue with IV diuresis initiated in the emergency department being careful to follow sodium, BUN, and creatinine. It does look like she has room for more diuresis. I think Ms. Moody is going to be very difficult to continue to manage inpatient or outpatient. If we are going to be most aggressive, we could try medications such as Milrinone. Her blood pressures have been too low to convert her to Entresto. Her ventricular rate with AFib is a bit faster now than her usual baseline and if it stays there she may be a candidate for Corlinor. This admission, I think we should do our best with aggressive diuresis as when her blood pressures in the 80s she is still maintaining and her skin is remaining dry, but I feel it is safer for an aggressive diuresis as an inpatient as opposed to outpatient. I have discussed and offered multiple times referral to [facility] for evaluation of that, but to date that has been declined. I agree with the initiation of discussions about end of life, palliative care had been discussed with the patient and her daughter in the past and often she was not really ready to go there. The patient has all along, however, wanted care consistent with palliation where she can stay at home. She does not like to be hospitalized. I broached this with the patient and her daughter today. The patient does not want to come in and out of the hospital, she says she is ready to go but does not want to suffer from severe breathing trouble. She expressed interest in assisted suicide and I explained this option is not available in the [facility]. She is interested in meeting with Hospice. We will follow her with you and assist with congestive heart failure management. Again, improvement in her failier and quality of life will be difficult. [id number]/CPS #: [id number] MTDD
[2017-03-13] MEDS ORDERED: Warfarin TAB(*) 1 MG PO ONE (17:00)
[2017-03-13] MEDS: Sulfamethox/Trimethoprim DS 800/160* TAB PO SCH (20:31)
[2017-03-13] MEDS: Morphine INJ* 2 MG/ML 1 ML SYRINGE IV PRN (23:43)
[2017-03-14 06:02] LABS: Hematocrit 35 % (35-47); Hemoglobin 11.6 g/dl (12.0-16.0); Mean Corpuscular HGB Conc 33 g/dl (31-36); Mean Corpuscular Hemoglobin 30 pg (27-31); Mean Corpuscular Volume 90 fL (80-97); Mean Platelet Volume 9 um3 (7.4-10.4); Red Blood Count 3.95 10^6/ul (4.0-5.4); Red Cell Distribution Width 14 % (10.5-15); White Blood Count 6.3 10^3/ul (3.5-10.8)
[2017-03-14 06:37] LABS: BUN/Creatinine Ratio 30.3 (8-20); Calcium 8.9 mg/dL (8.6-10.3); EGFR African American 67.9 (>60); EGFR Non-African American 52.8 (>60); Potassium 3.9 mmol/L (3.5-5.0)
[2017-03-14] MEDS: Spironolactone TAB* 25 MG PO SCH (08:32)
[2017-03-14] MEDS: Famotidine TAB* 20 MG PO SCH (08:33)
[2017-03-14] MEDS: Magnesium Oxide TAB* 400 MG PO SCH (08:33)
[2017-03-14] MEDS: Metoprolol Succinate XL TAB* 25 MG PO SCH (08:33)
[2017-03-14] MEDS: IRON PO SCH (08:33)
[2017-03-14] MEDS: Sulfamethox/Trimethoprim DS 800/160* TAB PO SCH (08:33)
[2017-03-14] MEDS: MULTIVITAMIN PO SCH (08:33)
[2017-03-14] MEDS: [UNRECOGNIZED DRUG - OTHER] PO SCH (08:33)
[2017-03-14] MEDS: ASCORBIC ACID 1000 MG PO SCH (08:34)
[2017-03-14 11:50] VITALS: BP 83/55
--- NOTE | 2017-03-14 12:07 | PN ---
Subjective Date of Service: 03/14/17 - CC: SOB Interval History: Breathing has improved today. Tia, daughter concerned in general, but also agrees with her Mother's imrovment. Pt asking to go home. Medications Active Medications: Acetaminophen (Tylenol Tab*) 650 mg PO Q4H PRN PRN Reason: FEVER/PAIN Last Admin: 03/12/17 20:12 Dose: 650 mg Famotidine (Pepcid Tab*) 20 mg PO BID [facility] PRN Reason: Protocol Last Admin: 03/14/17 08:33 Dose: 20 mg Magnesium Oxide (Magox 400 Tab*) 400 mg PO BID [facility] Last Admin: 03/14/17 08:33 Dose: 400 mg Metoprolol Succinate (Toprol Xl Tab*) 25 mg PO DAILY [facility] Last Admin: 03/14/17 08:33 Dose: 25 mg Morphine Sulfate (Morphine Inj (Syringe)*) 2 mg IV Q4H PRN PRN Reason: PAIN - MILD Last Admin: 03/13/17 23:43 Dose: 2 mg Pto Nf Med* Ascorbic (Acid 1000 Mg Cap) 1 admin PO DAILY [facility] Last Admin: 03/14/17 08:34 Dose: 1 admin Pto Nf Med* Multivitamin With Mineral And Iron Cap 1 admin PO DAILY [facility] Last Admin: 03/14/17 08:33 Dose: 1 admin Ondansetron HCl (Zofran Inj*) 4 mg IV Q4H PRN PRN Reason: NAUSEA/VOMITING Pharmacy Profile Note (Coumadin Per Pharmacy*) 1 note FOLLOW UP .PER PHARMACY PROTOC [facility] PRN Reason: Protocol Pharmacy Profile Note (Coumadin Daily Reminder*) 1 note FOLLOW UP 1700 [facility] Last Admin: 03/13/17 19:29 Dose: 1 note Spironolactone (Aldactone Tab*) 12.5 mg PO DAILY [facility] Last Admin: 03/14/17 08:32 Dose: 12.5 mg Trimethoprim/Sulfamethoxazole (Bactrim Ds 800/160 Tab*) 1 tab PO BID [facility] Last Admin: 03/14/17 08:33 Dose: 1 tab Objective Vital Signs: Temp Pulse Resp BP Pulse Ox 98.8 F 86 16 83/55 98 03/14/17 11:34 03/14/17 11:34 03/14/17 11:34 03/14/17 11:34 03/14/17 11:34 Oxygen Devices in Use Now: Nasal Cannula - at 3 L, 02 sat at 96% Appearance: elederly female, eating breakfast, chearful, no longer tachypnic. Eyes: PERRLA Ears/Nose/Mouth/Throat: Clear Oropharnyx Neck: Trachea Midline, No Thyroid Enlargement, Masses Respiratory: Symmetrical Chest Expansion and Respiratory Effort, - - basilar crackles improved, improved air movement L base. Cardiovascular: - - Increased JVP, but less pronounced, S1S2 irregular. Abdominal: No Hepatosplenomegaly Extremities: No Edema Skin: No Rash or Ulcers Neurological: Alert and Oriented x 3, NL Gait Lines/Tubes/Other Access: Clean, Dry and Intact PICC Line Laboratory Results: 03/14/17 05:08 03/14/17 05:08 INR (Anticoag Therapy) 2.68 (0.89-1.11) H 03/14/17 05:08 APTT 43.6 seconds (26.0-36.3) H 03/12/17 13:50 Total Bilirubin 1.40 mg/dL (0.2-1.0) H 03/13/17 04:50 Direct Bilirubin 0.30 mg/dL (0.03-0.18) H 03/13/17 04:50 Indirect Bilirubin 1.1 mg/dL (0.3-1.0) H 03/13/17 04:50 AST 46 U/L (13-39) H 03/13/17 04:50 ALT 33 U/L (7-52) 03/13/17 04:50 Alkaline Phosphatase 119 U/L (34-104) H 03/13/17 04:50 CK-MB (CK-2) 3.6 ng/mL (0.6-6.3) 03/12/17 13:50 B-Natriuretic Peptide 3422 pg/mL (-100) H 03/14/17 05:08 Total Protein 5.7 g/dL (6.4-8.9) L 03/13/17 04:50 Albumin 3.1 g/dL (3.2-5.2) L 03/13/17 04:50 Globulin 2.6 g/dL (2-4) 03/13/17 04:50 Albumin/Globulin Ratio 1.2 (1-3) 03/13/17 04:50 TSH 3.03 mcIU/mL (0.34-5.60) 03/12/17 13:50 03/12/17 03/12/17 03/13/17 16:54 19:35 04:50 Troponin I 7.48 H* 7.84 H* 4.82 H* EKG Data: Monitor: NSVT Assessment/Plan 89 yo endstage non ischemic CM admitted with decompensated CHF and low BP and low Na+ and probable E coli UTI. Improved with diuresis and BP low but stable. Na+ improved. As discussed, d/c to home on increased Torsemide. Hospice to see patient in or out patient after extensive discussions. VT: medical manage as per patient wishes. Continue beta jeffrey, optimize lytes. Pt is aware of the risk of sudden , she hopes for this as opposed to progressive SOB.
--- NOTE | 2017-03-14 12:59 | DS ---
CC: Dr. Castañeda; Dr. Rick * DISCHARGE SUMMARY: DATE OF ADMISSION: 03/12/17 DATE OF DISCHARGE: 03/14/17 PRIMARY CARE PROVIDER: Dr. Castañeda. DISCHARGE DIAGNOSES: 1. Exacerbation of acute systolic congestive heart failure. 2. Worsening of chronic left pleural effusion. SECONDARY DIAGNOSES: 1. History of paroxysmal atrial fibrillation. 2. History of chronic systolic and diastolic heart failure, severe with EF of less than 20% and grade 3 diastolic dysfunction. 3. History of severe mitral regurgitation, status post mitral valve replacement with bioprosthetic mitral valve. 4. History of episodes of nonsustained ventricular tachycardia in a patient who has used ICD in the past. MEDICATIONS AT DISCHARGE: Include: 1. Torsemide increased to 40 mg daily. 2. Coumadin unchanged at 2 mg daily. 3. Bactrim, new medication, 1 tablet p.o. b.i.d. 4. Spironolactone 12.5 mg on Friday, , Friday and Friday. 5. Zantac 150 mg b.i.d. 6. Multivitamin 1 tablet daily. 7. Toprol-XL 25 mg daily. 8. Magnesium oxide 400 mg b.i.d. 9. Vitamin D3 2000 units daily. 10. Vitamin C 1000 mg daily. After discharge, the patient is recommended to have an INR checked in 3 days. The patient is recommended to follow up with her primary care provider as already scheduled, with Dr. Castañeda on 03/19/17 at 11:30 a.m. The patient is also asked to call Dr. Rick's office and schedule an appointment for next week. LABORATORY DATA AND STUDIES PERFORMED DURING THE HOSPITAL STAY: Included: On 03/14/17, white blood cell count is 6.3, hemoglobin of 11.6, hematocrit of 35, and platelets of 123,000. Sodium was 134, potassium 3.9, chloride 93, carbon dioxide 33, BUN 30, creatinine 0.99. Brain natriuretic peptide was 3422 at discharge. Troponin peaked at 7.84. INR on the day of discharge was 2.68 and Coumadin doses had not been changed throughout her hospital stay. Microbiology studies showed positive for E. coli up to 25,000 colonies and urine cultures that were sensitive to most of the medications tested. CONSULTATIONS DURING THE HOSPITAL STAY: Included: 1. Dr. Rick from Cardiology. 2. Palliative Care/Crisis consult was also requested. Unfortunately, the patient did not receive it prior to discharge. HOSPITALIZATION COURSE: Tamy Moody is an 89-year-old female with history of severe cardiomyopathy with EF of below 20%, status post mitral valve replacement, history of non-sustained ventricular tachycardia for which she declined ICD in the past as well as chronic CHF, who presented to the hospital with oxygen requirements up to 8 L via nasal cannula and in acute CHF exacerbation. The patient was diuresed with intravenous Lasix. Over the course of 2 days, she diuresed approximately [address] Rick saw the patient in consultation. The patient voiced to Dr. Rick, wishes to be placed on hospice. Unfortunately, we were unable to have the consult performed during the patient's hospital stay, but apartment maintenance worker saw the patient at a visit and the patient is going to be set up with outpatient followup with hospice. After the patient's diuresis, she felt much better and her oxygen requirements were down to 3 L via nasal cannula. She also had significant left-sided pleural effusion that was worse comparing with older x-rays at admission. The patient's positive troponin at 7.8 was most likely due to non-ST elevation FL versus demand ischemia. Patient apparently did have mild chest pain a couple of days prior to admission. She had mild elevation of liver function tests most likely due to possible liver congestion and that was resolving by the time of discharge. Her urinalysis showed only 25,000 colonies of E. coli, but the patient's CRP was elevated at 50 and with overall not feeling well, we discussed the possibility of treating or not treating her mild bacteriuria. The patient's daughter preferred for the patient to be treated and she is going to take a total of 3 doses of Bactrim treatment. At discharge, the patient is to be going home under the care of her daughter on oxygen at 3 L. PHYSICAL EXAMINATION AT THE TIME OF DISCHARGE: Blood pressure of 92/60. Please note the patient is usually hypotensive with systolics in the 80s and 90s. Heart rate of 94 and irregularly irregular, respiratory rate 16, oxygen saturation 100% on 2 L of oxygen via nasal cannula, temperature 97.9. General: This is a very pleasant 89-year-old female who is in no acute distress. Alert , awake and oriented x3. HEENT: Head atraumatic and normocephalic. Eyes: Pupils equal and reactive to light and accommodation. Oropharynx clear. Mucosa moist. Neck: Supple. No JVD, no bruits bilaterally. Cardiovascular: Irregularly irregular rhythm. No murmur. Respiratory: Crackles at bilateral bases with decreased breath sounds at the left lung base. Abdomen: Soft, nontender. Positive bowel sounds present in all 4 quadrants. Extremities: There is trace bilateral pedal edema. Pulses +2 bilaterally. No clubbing or cyanosis. Neuro evaluation: Speech clear. Cranial nerves II through XII grossly intact. Motor strength is 5/5 bilaterally. Please note this is a short summary of the patient's hospital stay. Please refer to further medical records for details. TIME SPENT: Approximately 35 minutes was spent on the patient's discharge. [id number] #: [id number] MTDD
== END 2017-03-14 13:30 | disposition home or self-care (01) | DRG 281 ==
LOC: ED 10:47 → MEDTELE 15:17
PROVIDERS: ADMIT Hospitalist; ATTEND Internal Medicine
DX: I50.21 Acute systolic (congestive) heart failure (principal); I21.4 Non-ST elevation (NSTEMI) myocardial infarction; I47.2 Ventricular tachycardia; R18.8 Other ascites; E87.1 Hypo-osmolality and hyponatremia; N39.0 Urinary tract infection, site not specified; I42.9 Cardiomyopathy, unspecified; I24.8 Other forms of acute ischemic heart disease; I50.42 Chronic combined systolic (congestive) and diastolic (congestive) heart failure; I48.0 Paroxysmal atrial fibrillation; B96.20 Unspecified Escherichia coli [E. coli] as the cause of diseases classified elsewhere; R94.5 Abnormal results of liver function studies; Z95.810 Presence of automatic (implantable) cardiac defibrillator; Z95.2 Presence of prosthetic heart valve; Z79.01 Long term (current) use of anticoagulants; Z79.899 Other long term (current) drug therapy; I44.7 Left bundle-branch block, unspecified; Z66 Do not resuscitate
CPT/HCPCS: 36415; 71010; 80048; 80053; 80076; 81003; 81015; 82550; 82553; 83605; 83690; 83735; 83880; 84443; 84484; 85025; 85610; 85730; 86140; 87077; 87086; 87186; 93005; A9270-GY; J1940; J2270